=== PATIENT | female | born 1960 | race American Indian/Alaskan Native ===

== ENCOUNTER 2017-07-25 10:48 | Emergency (ER) | payer MEDICARE ==
[~2017-07-25] VITALS: Ht 167.6 cm; Wt 90.9 kg
[~2017-07-25 10:48] MED LIST: CIPR250T27 PO; LISI-167 PO; METF10002 PO
[2017-07-25] MEDS ORDERED: DEXAMETHASONE 4 MG TABLET PO ONE (12:30)
[2017-07-25] MEDS ORDERED: DIPHENHYDRAMINE 25 MG CAPSULE PO ONE (12:30)
[2017-07-25] MEDS ORDERED: DEXAMETHASONE 4 MG TABLET ONE (12:34)
[2017-07-25] MEDS ORDERED: DIPHENHYDRAMINE 25 MG CAPSULE ONE (12:34)
[2017-07-25] MEDS ORDERED: LIDOCAINE 1%, 20ML ONE (13:22)
[2017-07-25] MEDS ORDERED: LIDOCAINE 1%, 20ML INFIL ONE (13:30)
[2017-07-25 13:58] VITALS: BP 176/110
== END 2017-07-25 14:53 | disposition home or self-care (01) ==
LOC: ED 14:47
DX: L02.811 Cutaneous abscess of head [any part, except face] (principal); H05.229 Edema of unspecified orbit; E11.9 Type 2 diabetes mellitus without complications; I10 Essential (primary) hypertension
CPT/HCPCS: 10060; 99283; Q0163

== ENCOUNTER 2019-04-14 06:51 | Emergency (ER) | payer MEDICARE ==
[~2019-04-14] VITALS: Ht 167.6 cm; Wt 80.0 kg
[2019-04-14 13:35] VITALS: BP 129/80
== END 2019-04-14 16:30 ==
LOC: ED 08:51 → UNDOADMIN 11:45 → EDIP 11:45 → 4NOR 13:00 → ED 16:30 → UNDODISIN 16:30
DX: N10 Acute pyelonephritis (principal); R10.84 Generalized abdominal pain; N17.9 Acute kidney failure, unspecified
CPT/HCPCS: 36415; 74021; 74176; 76700; 80053; 81001; 82010; 82803; 83605; 83690; 85025; 87040; 87077; 87086; 87186; 93005; 96374; 96375; 99284; J0696; J2270; J2405; J7030; 96361; G0378

== ENCOUNTER 2019-08-02 06:11 | Inpatient (IN) | payer MEDICARE ==
[~2019-08-02] VITALS: Ht 167.6 cm; Wt 94.6 kg
[~2019-08-02 06:11] MED LIST changes: +BUSP5TAB2 PO; +INSU100V8 SQ
--- NOTE | 2019-08-02 06:17 | NUR ---
PT IN [place] IN [facility] WITH DR. KAMARA AT BS. PT EDUCATED ABOUT ER PROCESS AND POC AND VERBALIZES UNDERSTANDING. CALL LIGHT IS WITHIN REACH AT THIS TIME. AWAITING ORDERS AT THIS TIME.
[2019-08-02] MEDS ORDERED: SODIUM CHLORIDE FLUSH 10ML SYR IVF ONE (06:30)
[2019-08-02] MEDS ORDERED: DIPHENHYDRAMINE 50 MG/ML, 1ML IVPush ONE (06:30)
[2019-08-02] MEDS ORDERED: DIPHENHYDRAMINE 50 MG/ML, 1ML ONE (06:32)
[2019-08-02] MEDS ORDERED: MORPHINE SULFATE 4 MG/ML, 1ML ONE ×2 (06:32→08:48)
[2019-08-02 06:34] LABS: BASOPHILS # (AUTO) 0.03 x10^3/uL (0-0.1); BASOPHILS % (AUTO) 1 % (0-1); EOSINOPHILS # (AUTO) 0.28 x10^3/uL (0-0.4); EOSINOPHILS % (AUTO) 6 % (1-7); LYMPHOCYTES # (AUTO) 1.25 x10^3/uL (1-3.4); LYMPHOCYTES % (AUTO) 27 % (22-44); MD NO; MEAN CORPUSCULAR HEMOGLOBIN 30.5 pg (27.0-34.8); MEAN CORPUSCULAR HGB CONC 32.9 g/dL (32.4-35.8); MEAN PLATELET VOLUME 7.8 fL (7.4-10.4); MONOCYTES # (AUTO) 0.29 x10^3/uL (0.2-0.8); MONOCYTES % (AUTO) 6 % (2-9); NEUTROPHILS # (AUTO) 2.79 x10^3/uL (1.8-6.8); NEUTROPHILS % (AUTO) 60 % (42-75); PLATELET COUNT 272 x10^3/uL (130-400); RED BLOOD COUNT 3.94 x10^6/uL (3.82-5.3); RED CELL DISTRIBUTION WIDTH 14.2 % (9.6-15.2)
[2019-08-02] MEDS: MORPHINE SULFATE 4 MG/ML, 1ML IVPush PRN ×2 (06:34→08:52)
--- NOTE | 2019-08-02 06:35 | NUR ---
pt medicated per mar
--- NOTE | 2019-08-02 06:37 | NUR ---
pt medicated per mar at this time. pt states she is unable to void at this time but verbalized understanding of need for urine sample to be provided
[2019-08-02 06:43] LABS: ALANINE AMINOTRANSFERASE 23 U/L (12-78); ALBUMIN 3.7 g/dL (3.4-5.0); ANION GAP 4 mmol/L (5-15); CALCIUM 9.6 mg/dL (8.5-10.1); CHLORIDE 107 mmol/L (98-107); CREATININE 1.27 mg/dL (0.55-1.02)
[2019-08-02 06:45] LABS: ALKALINE PHOSPHATASE 108 U/L (45-117); BILIRUBIN,TOTAL 0.5 mg/dL (0.2-1.0); TOTAL PROTEIN 8.2 g/dL (6.4-8.2)
--- NOTE | 2019-08-02 06:51 | NUR ---
[facility]
--- NOTE | 2019-08-02 06:56 | NUR ---
REPORT OF PT TO JONES KENNY. ALL QUESTIONS ANSWERED.
--- NOTE | 2019-08-02 07:13 | NUR ---
PT BACK FROM CT, BP REMAINS ELEVATED WILL UPDATE ERMD. PT STATES PAIN NOW 5/10, BETTER POST PAIN ADMINISTRATION
[2019-08-02] MEDS ORDERED: AMLODIPINE 5 MG TABLET ONE (07:27)
[2019-08-02] MEDS ORDERED: AMLODIPINE 5 MG TABLET PO ONE (07:30)
[2019-08-02 07:46] LABS: MICROSCOPIC AUTO
[2019-08-02 07:48] LABS: CULTURE INDICATED? YES
--- NOTE | 2019-08-02 08:27 | NUR ---
BP REMAINS ELEVATED, ERMD AWARE.
[2019-08-02] MEDS ORDERED: ENALAPRILAT 1.25 MG/ML, 2ML IV ONE (08:30)
[2019-08-02] MEDS ORDERED: ENALAPRILAT 1.25 MG/ML, 1ML ONE (08:48)
[2019-08-02] MEDS ORDERED: CEFTRIAXONE PMX 1GM/50ML 50 ML ONE (08:53)
--- NOTE | 2019-08-02 08:58 | NUR ---
ADDITIONAL MEDICATION ORDERED FOR ELEVATED BP, PT MEDICATED PER OCT. PT TO BE ADMITTED, ERMD IN TO UPDATE PT Addendum: 08/02/19 at 0959 by DANYA OK PER ERMD TO ADMIN ABX, NO BC NEEDED PT NOT MEETING SIRS CRITERIA
[2019-08-02] MEDS ORDERED: CEFTRIAXONE PMX 1GM/50ML 50 ML IV ONE (09:00)
[2019-08-02] MEDS ORDERED: AMLO10TA8 PO (09:09)
[2019-08-02] MEDS ORDERED: FERR324T5 PO (09:09)
[2019-08-02] MEDS: BUSPIRONE 5 MG TABLET PO SCH ×3 (10:00→21:00)
[2019-08-02] MEDS ORDERED: TEMPLATE NON-FORMULARY MED. (Ferrous Sulfate** 324 MG) PO SCH (10:00)
[2019-08-02] MEDS ORDERED: INSULIN GLARGINE 100 UNITS/ML, PEN SQ-INSULIN SCH (10:00)
[2019-08-02] MEDS: CEFTRIAXONE PMX 2GM/50ML 50 ML IV SCH (10:00)
[2019-08-02] MEDS ORDERED: AMLODIPINE 10 MG TAB PO SCH (10:00)
--- NOTE | 2019-08-02 10:22 | NUR ---
PT TO BE MED TELE, AWAITING BED PLACEMENT, BP LOWERING, ADMITTING MD IN TO EVAL PT. NAD NOTED
[2019-08-02] MEDS ORDERED: TEMAZEPAM 15 MG CAPSULE PO PRN (10:30)
[2019-08-02] MEDS ORDERED: ONDANSETRON 2MG/ML, 2ML IVPush PRN (10:30)
[2019-08-02] MEDS ORDERED: ACETAMINOPHEN 325 MG TABLET PO PRN (10:30)
[2019-08-02] MEDS ORDERED: INSULIN LISPRO 100 UNITS/ML, PEN SQ-INSULIN SCH (11:00)
--- NOTE | 2019-08-02 11:51 | NUR ---
REPORT CALLED TO RECIEVING RN
[2019-08-02] MEDS ORDERED: FERROUS SULFATE 325 MG TABLET PO SCH (12:36)
[2019-08-02 12:45] VITALS: BP 160/80
[2019-08-02 12:54] VITALS: BP 222/117
[2019-08-02] MEDS: hydrALAzine 20 MG/ML, 1ML IV PRN ×2 (13:00→23:48)
[2019-08-02] MEDS: NICOTINE 21 MG/24 HR PATCH.TD24 TD SCH (13:08)
[2019-08-02] MEDS: morphine SULFATE 10 MG/ML, 1ML IVPush PRN ×3 (14:44→23:57)
[2019-08-02] MEDS: HEPARIN 5,000 UNITS/ML, 1ML SQ SCH (14:48)
[2019-08-02] MEDS: SODIUM CHLORIDE 0.9% 1,000 ML IV SCH (16:39)
[2019-08-02 18:51] VITALS: BP 153/73
[2019-08-02] MEDS ORDERED: BUSPIRONE 10 MG TABLET ONE (21:32)
[2019-08-02] MEDS: INSULIN LISPRO 100 UNITS/ML, PEN SQ-INSULIN SCH (21:35)
[2019-08-02] MEDS: AMLODIPINE 5 MG TABLET PO SCH (21:35)
[2019-08-02 23:46] VITALS: BP 178/94
[2019-08-03 00:30] VITALS: BP 126/69
[2019-08-03 01:01] VITALS: BP 129/75
[2019-08-03] MEDS: SODIUM CHLORIDE 0.9% 1,000 ML IV SCH (04:24)
[2019-08-03] MEDS: HEPARIN 5,000 UNITS/ML, 1ML SQ SCH (04:24)
[2019-08-03] MEDS: morphine SULFATE 10 MG/ML, 1ML IVPush PRN (06:05)
[2019-08-03 06:15] LABS: CALCIUM 9.1 mg/dL (8.5-10.1); CHLORIDE 110 mmol/L (98-107)
[2019-08-03 06:22] LABS: ALANINE AMINOTRANSFERASE 24 U/L (12-78); ALBUMIN 3.2 g/dL (3.4-5.0); ALKALINE PHOSPHATASE 98 U/L (45-117); ANION GAP 9 mmol/L (5-15); BILIRUBIN,TOTAL 0.5 mg/dL (0.2-1.0); CREATININE 1.35 mg/dL (0.55-1.02); TOTAL PROTEIN 7.7 g/dL (6.4-8.2)
[2019-08-03 07:09] LABS: BASOPHILS # (AUTO) 0.03 x10^3/uL (0-0.1); BASOPHILS % (AUTO) 1 % (0-1); EOSINOPHILS # (AUTO) 0.27 x10^3/uL (0-0.4); EOSINOPHILS % (AUTO) 5 % (1-7); LYMPHOCYTES # (AUTO) 1.36 x10^3/uL (1-3.4); LYMPHOCYTES % (AUTO) 25 % (22-44); MD NO; MEAN CORPUSCULAR HEMOGLOBIN 30.4 pg (27.0-34.8); MEAN CORPUSCULAR HGB CONC 33.4 g/dL (32.4-35.8); MEAN CORPUSCULAR VOLUME 90.9 fL (80-100); MEAN PLATELET VOLUME 7.5 fL (7.4-10.4); MONOCYTES # (AUTO) 0.42 x10^3/uL (0.2-0.8); MONOCYTES % (AUTO) 8 % (2-9); NEUTROPHILS % (AUTO) 61 % (42-75); PLATELET COUNT 289 x10^3/uL (130-400); RED BLOOD COUNT 4.32 x10^6/uL (3.82-5.3); RED CELL DISTRIBUTION WIDTH 14.5 % (9.6-15.2)
[2019-08-03 07:50] VITALS: BP 179/88
[2019-08-03] MEDS: INSULIN LISPRO 100 UNITS/ML, PEN SQ-INSULIN SCH (08:37)
[2019-08-03] MEDS ORDERED: METHOCARBAMOL 500 MG TABLET PO SCH (09:30)
[2019-08-03] MEDS ORDERED: HYDROcodone/APAP 5/325 TABLET PO PRN (09:30)
[2019-08-03] MEDS ORDERED: BUSPIRONE 10 MG TABLET ONE (10:33)
[2019-08-03] MEDS: NICOTINE 21 MG/24 HR PATCH.TD24 TD SCH (10:36)
[2019-08-03] MEDS: CEFTRIAXONE PMX 2GM/50ML 50 ML IV SCH (10:37)
[2019-08-03] MEDS: AMLODIPINE 5 MG TABLET PO SCH (10:37)
[2019-08-03] MEDS: BUSPIRONE 5 MG TABLET PO SCH (10:37)
== END 2019-08-03 11:32 | disposition left against medical advice (07) | DRG 683 ==
LOC: ED 07:12 → EDIP 09:32 → 3N 12:30
PROVIDERS: ADMIT Emergency Medicine; ATTEND Internal Medicine
DX: N17.0 Acute kidney failure with tubular necrosis (principal); I50.32 Chronic diastolic (congestive) heart failure; I16.0 Hypertensive urgency; N10 Acute pyelonephritis; E11.40 Type 2 diabetes mellitus with diabetic neuropathy, unspecified; E66.9 Obesity, unspecified; F17.210 Nicotine dependence, cigarettes, uncomplicated; F32.9 Major depressive disorder, single episode, unspecified; I11.0 Hypertensive heart disease with heart failure; I25.10 Atherosclerotic heart disease of native coronary artery without angina pectoris; Z79.4 Long term (current) use of insulin; Z80.3 Family history of malignant neoplasm of breast; Z80.49 Family history of malignant neoplasm of other genital organs; Z90.49 Acquired absence of other specified parts of digestive tract; Z99.3 Dependence on wheelchair
CPT/HCPCS: 36415; 74176; 80053; 81001; 82962; 83690; 83735; 84100; 84443; 85025; 87040; 87077; 87086; 87186; 93005; G0378; J0696; J1644; J0360; J1200; J1815; J2270; J7030

== ENCOUNTER 2020-03-25 18:28 | Observation (INO) | payer MEDICARE ==
[~2020-03-25] VITALS: Ht 167.6 cm; Wt 77.0 kg
[~2020-03-25 18:28] MED LIST changes: +AMLO10TA8 PO; +FERR324T5 PO
[2020-03-25] MEDS ORDERED: SODIUM CHLORIDE FLUSH 10ML SYR IVF ONE (19:00)
[2020-03-25] MEDS ORDERED: morphine SULFATE 10 MG/ML, 1ML IVPush ONE (19:00)
[2020-03-25] MEDS ORDERED: MORPHINE SULFATE 4 MG/ML, 1ML ONE (19:18)
[2020-03-25] MEDS ORDERED: ONDANSETRON 2MG/ML, 2ML ONE (19:18)
[2020-03-25 19:29] LABS: BASOPHILS # (AUTO) 0.02 x10^3/uL (0-0.1); BASOPHILS % (AUTO) 1 % (0-1); EOSINOPHILS # (AUTO) 0.09 x10^3/uL (0-0.4); EOSINOPHILS % (AUTO) 2 % (1-7); LYMPHOCYTES # (AUTO) 1.36 x10^3/uL (1-3.4); LYMPHOCYTES % (AUTO) 28 % (22-44); MD NO; MEAN CORPUSCULAR HEMOGLOBIN 30.7 pg (27.0-34.8); MEAN CORPUSCULAR HGB CONC 33.7 g/dL (32.4-35.8); MEAN CORPUSCULAR VOLUME 91.3 fL (80-100); MEAN PLATELET VOLUME 7.7 fL (7.4-10.4); MONOCYTES % (AUTO) 8 % (2-9); NEUTROPHILS # (AUTO) 3.01 x10^3/uL (1.8-6.8); NEUTROPHILS % (AUTO) 62 % (42-75); PLATELET COUNT 353 x10^3/uL (130-400); RED BLOOD COUNT 4.24 x10^6/uL (3.82-5.3); RED CELL DISTRIBUTION WIDTH 13.3 % (9.6-15.2)
[2020-03-25] MEDS ORDERED: ONDANSETRON 2MG/ML, 2ML IVPush ONE (19:30)
[2020-03-25 19:42] LABS: ALANINE AMINOTRANSFERASE 22 U/L (12-78); ANION GAP 10 mmol/L (5-15); CALCIUM 9.6 mg/dL (8.5-10.1); CHLORIDE 102 mmol/L (98-107); CREATININE 1.75 mg/dL (0.55-1.02)
[2020-03-25 19:47] LABS: ALKALINE PHOSPHATASE 77 U/L (45-117); BILIRUBIN,TOTAL 1.2 mg/dL (0.2-1.0); TOTAL PROTEIN 7.9 g/dL (6.4-8.2); TROPONIN I < 0.015 ng/mL (0.000-0.045)
[2020-03-25] MEDS ORDERED: SODIUM CHLORIDE 0.9%, 500ML IVBOLUS ONE (20:30)
--- NOTE | 2020-03-25 21:03 | NUR ---
Assumed care at this time. marlen RN female RN completing striaght cath for this Male RN.
[2020-03-25 21:36] LABS: MICROSCOPIC AUTO
[2020-03-25] MEDS ORDERED: CEFTRIAXONE PMX 1GM/50ML 50 ML IV ONE (22:00)
[2020-03-25] MEDS ORDERED: CEFTRIAXONE PMX 1GM/50ML 50 ML ONE (22:36)
--- NOTE | 2020-03-25 22:50 | NUR ---
Pt medicated per emar. Pt ambulated to restroom with 1 person contact
--- NOTE | 2020-03-25 23:48 | NUR ---
Report to Luzmaria GOLDMAN
--- NOTE | 2020-03-25 23:49 | NUR ---
Report received from JONES Wallace. This RN to assume care.
[2020-03-26] MEDS ORDERED: POLYETHYLENE GLYCOL 17 GM PACKET PO PRN (00:30)
[2020-03-26] MEDS ORDERED: INSULIN GLARGINE 100 UNITS/ML, PEN SQ-INSULIN SCH (00:30)
[2020-03-26] MEDS ORDERED: ONDANSETRON 2MG/ML, 2ML IVPush PRN (00:30)
[2020-03-26] MEDS ORDERED: hydrALAzine 20 MG/ML, 1ML IVPush PRN (00:30)
[2020-03-26] MEDS ORDERED: POTASSIUM CHLORIDE 40 MEQ in SODIUM CHLORIDE 0.9% 500 ML IV ONE (00:30)
[2020-03-26] MEDS ORDERED: TRAZODONE 50MG TABLET PO PRN (00:30)
[2020-03-26] MEDS ORDERED: ACETAMINOPHEN 325 MG TABLET PO PRN (00:30)
--- NOTE | 2020-03-26 01:49 | NUR ---
Patient presented to ER c/o SOB, abd pain, nausea, and fatigue x1 month. Patient currently c/o all symptoms in addition to chest pressure. Patient is also experiencing weakness.
[2020-03-26 02:58] VITALS: BP 176/92
[2020-03-26] MEDS ORDERED: LISI-170 PO (03:05)
[2020-03-26] MEDS: INSULIN GLARGINE 100 UNITS/ML, PEN SQ-INSULIN SCH ×2 (03:08→20:58)
[2020-03-26 03:20] LABS: AMPHETAMINE SCREEN, URINE Positive (Negative); BARBITURATE SCREEN, URINE Negative (Negative); BENZODIAZEPINE SCREEN, URINE Negative (Negative); CANNABINOID SCREEN, URINE Negative (Negative); COCAINE SCREEN, URINE Negative (Negative); METHADONE SCREEN, URINE Negative (Negative); OPIATE SCREEN, URINE Positive (Negative)
[2020-03-26] MEDS: morphine SULFATE 10 MG/ML, 1ML IVPush PRN ×3 (03:24→12:20)
[2020-03-26] MEDS: HEPARIN 5,000 UNITS/ML, 1ML SQ SCH ×4 (03:24→23:40)
[2020-03-26 05:20] LABS: ANION GAP 10 mmol/L (5-15); CALCIUM 9.1 mg/dL (8.5-10.1); CHLORIDE 106 mmol/L (98-107)
[2020-03-26 05:21] LABS: CREATININE 1.53 mg/dL (0.55-1.02)
[2020-03-26 07:12] VITALS: BP 112/67
[2020-03-26] MEDS: INSULIN LISPRO 100 UNITS/ML, PEN SQ-INSULIN SCH ×4 (08:29→20:59)
[2020-03-26] MEDS: BUSPIRONE 5 MG TABLET PO SCH ×3 (08:34→20:58)
[2020-03-26] MEDS ORDERED: AMLODIPINE 5 MG TABLET PO SCH (09:00)
[2020-03-26] MEDS ORDERED: FERROUS SULFATE 325 MG TABLET PO SCH (09:00)
[2020-03-26] MEDS ORDERED: POTASSIUM CHLORIDE 20 MEQ TAB.ER.PRT PO ONE (15:00)
[2020-03-26 16:10] VITALS: BP 145/78
[2020-03-26] MEDS: HYDROcodone/APAP 5/325 TABLET PO PRN ×2 (16:52→23:40)
[2020-03-26 19:38] VITALS: BP 157/91
[2020-03-26] MEDS ORDERED: CEFTRIAXONE PMX 1GM/50ML 50 ML IV SCH (23:00)
[2020-03-27 01:13] VITALS: BP 133/76
== END 2020-03-27 05:20 | disposition left against medical advice (07) ==
LOC: ED 21:08 → INTOOBSV 22:13 → EDIP 22:13 → 4WST 03-26 03:08
PROVIDERS: ADMIT Family Medicine; ATTEND Family Medicine
DX: N17.0 Acute kidney failure with tubular necrosis (principal); I50.23 Acute on chronic systolic (congestive) heart failure; N39.0 Urinary tract infection, site not specified; I10 Essential (primary) hypertension; E86.0 Dehydration; E11.9 Type 2 diabetes mellitus without complications; E78.5 Hyperlipidemia, unspecified; F17.210 Nicotine dependence, cigarettes, uncomplicated; F32.9 Major depressive disorder, single episode, unspecified; R07.81 Pleurodynia; E87.6 Hypokalemia; F15.90 Other stimulant use, unspecified, uncomplicated; M54.5 Low back pain; K59.00 Constipation, unspecified; I25.2 Old myocardial infarction; Z79.4 Long term (current) use of insulin; Z90.49 Acquired absence of other specified parts of digestive tract
CPT/HCPCS: 36415; 71045; 71101; 80048; 80053; 80307; 81001; 82550; 82962; 83036; 83605; 83690; 83735; 83880; 84484; 85025; 85379; 87077; 87086; 87186; 93005; 93306; 96361; 96365; 96366; 96367; 96372; 96375; 96376; 99285; G0378; J0360; J0696; J1644; J1815; J2270; J2405; J3480; J7040; 96374

== ENCOUNTER 2021-03-14 16:34 | Inpatient (IN) | payer MEDICARE ==
[~2021-03-14] VITALS: Ht 167.6 cm; Wt 86.9 kg
[~2021-03-14 16:34] MED LIST changes: +AMLO-211 PO; -AMLO10TA8 PO; +DIPH25CA61 PO; +DOCUSATE PO; +LEVE100020 PO; +LEVO750T6 PO; +LISI-170 PO; +OXYC5TAB98 PO; +QUET100T PO; +SENN-211 PO; +TAMS-11 PO; +TRAZ-175 PO; +[UNRECOGNIZED DRUG - OTHER] PO
--- NOTE | 2021-03-14 16:49 | NUR ---
PT TO ROOM 17 W/ C/O NEPHROSTOMY TUBE BAG LEAKING. PT STATES SHE WAS HERE WHEN IT WAS PLACED BECAUSE SHE WAS CRITICALLY SEPTIC. PT WAS DC'D FROM ED AND PT STATES "THERE WERE SO MANY PAGES OF DIACHARGE INSTRUCTIONS AND I DIDN'T READ IT THEN I FOUND OUT I NEEDED TO FOLLOW UP WITH A SURVEY WORKER". PT STATES SHE WAS SUPPOSED TO HAVE THE TUBE REMOVED 6 WEEKS AGO AND DID NOT REALIZE THAT UNTIL LAST WEEK. PT STATES SINCE THEN SHE HAS ATTEMPTED TO CALL TO MAKE APPT W/ SURVEY WORKER W/O SUCCESS. PT ALSO STATES SHE HAS NOT CHANGED DRESSING FOR NEPHROSTOMY TUBE SINCE SHE WAS DISCHARGED. PT RESTING ON GURNEY. NADN. MONITORS APPLIED. VSS. WARM BLANKET PROVIDED. CALL LIGHT IN REACH.
[2021-03-14 17:54] LABS: BASOPHILS % (AUTO) 1 % (0-1); EOSINOPHILS % (AUTO) 4 % (1-7); LYMPHOCYTES % (AUTO) 29 % (22-44); MEAN CORPUSCULAR HEMOGLOBIN 30.8 pg (27.0-34.8); MEAN CORPUSCULAR HGB CONC 34.1 g/dL (32.4-35.8); MEAN PLATELET VOLUME 7.4 fL (7.4-10.4); MONOCYTES % (AUTO) 6 % (2-9); NEUTROPHILS % (AUTO) 60 % (42-75); PLATELET COUNT 412 x10^3/uL (130-400); RED BLOOD COUNT 3.33 x10^6/uL (3.82-5.3); RED CELL DISTRIBUTION WIDTH 14.6 % (9.6-15.2)
--- NOTE | 2021-03-14 17:54 | NUR ---
PT RESTING ON GURNEY. NADN. [place].
[2021-03-14 18:06] LABS: CALCIUM 8.9 mg/dL (8.5-10.1)
[2021-03-14 18:09] LABS: CREATININE 1.79 mg/dL (0.55-1.02)
[2021-03-14 18:17] LABS: ANION GAP 5 mmol/L (5-15); CHLORIDE 110 mmol/L (98-107)
--- NOTE | 2021-03-14 18:23 | NUR ---
PT CHART REVIEWED AND PLACED FOR RECHECK.
--- NOTE | 2021-03-14 18:39 | NUR ---
PT RESTING ON GURNEY. NADN. [place].
[2021-03-14 19:09] LABS: MICROSCOPIC INDICATED
--- NOTE | 2021-03-14 19:34 | NUR ---
PT BEING TAKEN TO RADIOLOGY FOR NEPHROSTOGRAM IN STABLE CONDITION. MARTYN. VSS.
--- NOTE | 2021-03-14 20:31 | NUR ---
WOUND CARE PERFORMED TO NEPHROSTOMY OPENING. PT MARGARETH WELL.
--- NOTE | 2021-03-14 20:39 | NUR ---
PT RESTING ON GURNEY. NADN. [place].
[2021-03-14] MEDS ORDERED: LORazepam 1MG TABLET ONE (20:55)
[2021-03-14] MEDS: CEFTRIAXONE 1,000 MG in DEXTROSE 5% 50 ML IVPB ONE ×2 (20:58→22:27)
--- NOTE | 2021-03-14 20:58 | NUR ---
PER ERP DR. HARRIS NO NEED FRO BC X 2 PRIOR TO START OF IV ABX.
[2021-03-14] MEDS ORDERED: LORazepam 1MG TABLET PO ONE (21:00)
--- NOTE | 2021-03-14 21:18 | NUR ---
REPORT GIVEN TO EMILI MONTANA RN.
[2021-03-14] MEDS ORDERED: SODIUM CHLORIDE 0.9% 1,000 ML IV SCH (22:00)
[2021-03-14] MEDS ORDERED: ONDANSETRON 2MG/ML, 2ML IVPush PRN (22:00)
[2021-03-14] MEDS ORDERED: POLYETHYLENE GLYCOL 17 GM PACKET PO PRN (22:00)
[2021-03-14] MEDS ORDERED: HYDROcodone/APAP 5/325 TABLET PO PRN (22:00)
[2021-03-14] MEDS ORDERED: TRAZODONE 50MG TABLET PO PRN (22:00)
[2021-03-14] MEDS ORDERED: ONDANSETRON ODT 4 MG PO PRN (22:00)
[2021-03-14] MEDS ORDERED: BISACODYL 10 MG SUPP PR PRN (22:00)
[2021-03-14] MEDS ORDERED: LABETALOL 5MG/ML, 20ML IVPush PRN (22:00)
[2021-03-14] MEDS ORDERED: morphine SULFATE 10 MG/ML, 1ML IVPush PRN (22:00)
[2021-03-14] MEDS ORDERED: ACETAMINOPHEN 325 MG TABLET PO PRN (22:00)
[2021-03-14] MEDS: CEFTRIAXONE 1,000 MG in DEXTROSE 5% 50 ML IVPB SCH (22:00)
[2021-03-14] MEDS ORDERED: hydrALAzine 20 MG/ML, 1ML IVPush PRN (22:00)
[2021-03-14] MEDS ORDERED: TRAZODONE 150MG TABLET PO PRN (22:30)
[2021-03-14] MEDS ORDERED: DEXTROSE 50%, 50ML SYRINGE IVPush PRN (22:30)
[2021-03-14] MEDS ORDERED: DEXTROSE 4 GM TAB.CHEW PO PRN (22:30)
[2021-03-14] MEDS ORDERED: GLUCAGON 1 MG IM PRN (22:30)
--- NOTE | 2021-03-14 22:35 | NUR ---
report given to alpa harrington
[2021-03-14] MEDS ORDERED: ACETAMINOPHEN 325 MG TABLET ONE (22:36)
[2021-03-14] MEDS ORDERED: hydrALAzine 20 MG/ML, 1ML ONE (22:45)
--- NOTE | 2021-03-14 23:08 | NUR ---
PT'S BLOOD PRESSUE WAS HIGH, PT STATED HAVING A HEADACHE. MEDICATED PER EMAR. BP MORE STABLE NOW. PT READY FOR TRANSPORT AT THIS TIME
[2021-03-15 00:17] VITALS: BP 135/79
[2021-03-15 06:22] LABS: BASOPHILS % (AUTO) 1 % (0-1); EOSINOPHILS % (AUTO) 4 % (1-7); LYMPHOCYTES % (AUTO) 20 % (22-44); MEAN CORPUSCULAR HEMOGLOBIN 30.7 pg (27.0-34.8); MEAN CORPUSCULAR HGB CONC 33.6 g/dL (32.4-35.8); MEAN PLATELET VOLUME 7.2 fL (7.4-10.4); MONOCYTES % (AUTO) 6 % (2-9); NEUTROPHILS % (AUTO) 69 % (42-75); PLATELET COUNT 396 x10^3/uL (130-400); RED BLOOD COUNT 3.18 x10^6/uL (3.82-5.3); RED CELL DISTRIBUTION WIDTH 14.8 % (9.6-15.2)
[2021-03-15 06:33] LABS: ANION GAP 4 mmol/L (5-15); CALCIUM 8.8 mg/dL (8.5-10.1); CHLORIDE 111 mmol/L (98-107); CREATININE 1.71 mg/dL (0.55-1.02)
[2021-03-15] MEDS: INSULIN LISPRO 100 UNITS/ML, PEN SQ-INSULIN SCH ×4 (07:00→20:30)
[2021-03-15 07:20] VITALS: BP 128/71
[2021-03-15] MEDS ORDERED: ACETAMINOPHEN 325 MG TABLET PO PRN ×2 (08:00→09:00)
[2021-03-15] MEDS ORDERED: HYDROcodone/APAP 5/325 TABLET PO PRN (08:00)
[2021-03-15] MEDS ORDERED: HEPARIN 5,000 UNITS/ML, 1ML SQ SCH (08:00)
[2021-03-15] MEDS ORDERED: MIDAZOLAM 1 MG/ML, 2ML ONE (08:41)
[2021-03-15] MEDS ORDERED: FENTANYL PF 100 MCG/2ML ONE (08:41)
[2021-03-15] MEDS ORDERED: OXYcodone 5 MG/5 ML ORAL.SOL UDC PO PRN (09:00)
[2021-03-15] MEDS ORDERED: LABETALOL 5MG/ML, 20ML IV PRN (09:00)
[2021-03-15] MEDS ORDERED: FENTANYL PF 100 MCG/2ML IV PRN (09:00)
[2021-03-15] MEDS ORDERED: PROMETHAZINE 25 MG/ML, 1ML IVPush PRN (09:00)
[2021-03-15] MEDS ORDERED: EPHEDRINE 50 MG/ML, 1ML IVPush PRN (09:00)
[2021-03-15] MEDS ORDERED: HYDROmorphone 1 MG/ML, 1ML INJ IVPush PRN (09:00)
[2021-03-15] MEDS ORDERED: hydrALAzine 20 MG/ML, 1ML IV PRN (09:00)
[2021-03-15] MEDS ORDERED: ONDANSETRON 2MG/ML, 2ML IVPush PRN (09:00)
[2021-03-15] MEDS ORDERED: OMNIPAQUE 350 MG/ML, 50 ML BOTTLE ONE (09:11)
[2021-03-15] MEDS ORDERED: LIDOCAINE-MPF 2% ,5ML ONE (09:43)
[2021-03-15] MEDS ORDERED: PROPOFOL 10 MG/ML, 20ML ONE (09:55)
[2021-03-15] MEDS ORDERED: ONDANSETRON 2MG/ML, 2ML ONE (09:55)
[2021-03-15] MEDS ORDERED: DEXAMETHASONE 4 MG/ML, 1ML ONE (09:55)
[2021-03-15] MEDS ORDERED: EPHEDRINE 50 MG/ML, 1ML ONE (10:05)
[2021-03-15] MEDS ORDERED: OXYcodone 5 MG/5 ML ORAL.SOL UDC ONE (11:10)
[2021-03-15 12:35] VITALS: BP 119/68
[2021-03-15] MEDS: SENNA/DOCUSATE TABLET PO SCH (12:57)
[2021-03-15] MEDS: LEVETIRACETAM 500 MG TABLET PO SCH ×2 (12:57→20:32)
[2021-03-15] MEDS: SODIUM CHLORIDE FLUSH 10ML SYR IVF SCH ×2 (12:58→20:32)
[2021-03-15 18:34] VITALS: BP 147/74
[2021-03-15] MEDS ORDERED: SODIUM CHLORIDE 0.9% 1,000 ML IV SCH (22:00)
[2021-03-15] MEDS: CEFTRIAXONE 1,000 MG in DEXTROSE 5% 50 ML IVPB SCH (22:14)
[2021-03-16 00:06] VITALS: BP 122/80
[2021-03-16 03:56] VITALS: BP 148/83
[2021-03-16 05:30] LABS: % IRON SATURATION 26 % (20-55); IRON LEVEL 83 mcg/dL (50-170); TOTAL IRON BINDING CAPACITY 319 mcg/dL (250-450)
[2021-03-16] MEDS ORDERED: DIPHENHYDRAMINE 25 MG CAPSULE ONE (05:53)
[2021-03-16] MEDS ORDERED: HEPARIN 5,000 UNITS/ML, 1ML SQ SCH (06:00)
[2021-03-16] MEDS ORDERED: DIPHENHYDRAMINE 25 MG CAPSULE PO ONE (06:00)
[2021-03-16 06:30] VITALS: BP 150/80
[2021-03-16] MEDS: INSULIN LISPRO 100 UNITS/ML, PEN SQ-INSULIN SCH (07:32)
[2021-03-16] MEDS ORDERED: FLUCONAZOLE 200 MG/100 ML 100 ML IV ONE (08:00)
[2021-03-16] MEDS: SODIUM CHLORIDE FLUSH 10ML SYR IVF SCH (09:23)
[2021-03-16] MEDS: LEVETIRACETAM 500 MG TABLET PO SCH (09:23)
[2021-03-16] MEDS: SENNA/DOCUSATE TABLET PO SCH (09:23)
[2021-03-16] MEDS ORDERED: INSU100I11 SQ-INSULIN ×2 (10:40→12:59)
[2021-03-16] MEDS ORDERED: FLUC100T PO ×2 (10:40→12:59)
[2021-03-16] MEDS ORDERED: CARV3.1212 PO ×2 (10:40→12:59)
[2021-03-16] MEDS ORDERED: INSULIN LISPRO 100 UNITS/ML, PEN SQ-INSULIN SCH (11:00)
[2021-03-16] MEDS ORDERED: INSU100V8 SQ (12:59)
[2021-03-16] MEDS ORDERED: LEVO750T6 PO (12:59)
[2021-03-16] MEDS ORDERED: SENN-211 PO (12:59)
[2021-03-16] MEDS ORDERED: ACET325T26 PO (12:59)
[2021-03-16] MEDS ORDERED: QUET100T PO (12:59)
[2021-03-16] MEDS ORDERED: LEVE500T53 PO (12:59)
[2021-03-16] MEDS ORDERED: TAMS-11 PO (12:59)
[2021-03-16] MEDS ORDERED: LISI-167 PO (12:59)
[2021-03-16] MEDS ORDERED: CARVEDILOL 3.125 MG TABLET PO SCH (18:00)
[2021-03-16] MEDS ORDERED: SODIUM CHLORIDE 0.9% 1,000 ML IV SCH (22:00)
[2021-03-17] MEDS ORDERED: FLUCONAZOLE 100 MG TABLET PO SCH (09:00)
== END 2021-03-16 13:10 | disposition home health service (06) | DRG 660 ==
LOC: ED 17:00 → 3N 22:40 → 4NE 23:47 → DCLOUNGE 03-16 13:00
PROVIDERS: ADMIT Family Medicine; ATTEND Internal Medicine
PROC: 0T768DZ Dilation of Right Ureter with Intraluminal Device, Via Natural or Artificial Opening Endoscopic (ICD-10-PCS; 2021-03-15)
PROC: 0TF38ZZ Fragmentation in Right Kidney Pelvis, Via Natural or Artificial Opening Endoscopic (ICD-10-PCS; 2021-03-15)
PROC: 0TF68ZZ Fragmentation in Right Ureter, Via Natural or Artificial Opening Endoscopic (ICD-10-PCS; 2021-03-15)
PROC: 0TP980Z Removal of Drainage Device from Ureter, Via Natural or Artificial Opening Endoscopic (ICD-10-PCS; 2021-03-15)
PROC: 0TP5X0Z Removal of Drainage Device from Kidney, External Approach (ICD-10-PCS; 2021-03-15)
PROC: 0TJB8ZZ Inspection of Bladder, Via Natural or Artificial Opening Endoscopic (ICD-10-PCS; principal; 2021-03-15 09:15)
DX: N13.5 Crossing vessel and stricture of ureter without hydronephrosis (principal); N39.0 Urinary tract infection, site not specified; E87.1 Hypo-osmolality and hyponatremia; N18.30 Chronic kidney disease, stage 3 unspecified; E11.22 Type 2 diabetes mellitus with diabetic chronic kidney disease; I12.9 Hypertensive chronic kidney disease with stage 1 through stage 4 chronic kidney disease, or unspecified chronic kidney disease; D64.9 Anemia, unspecified; Z20.822 Contact with and (suspected) exposure to COVID-19; Z91.018 Allergy to other foods; Z79.899 Other long term (current) drug therapy; Z91.19 Patient's noncompliance with other medical treatment and regimen; Z91.030 Bee allergy status; Z79.4 Long term (current) use of insulin; Z90.49 Acquired absence of other specified parts of digestive tract; Z93.6 Other artificial openings of urinary tract status; Z93.0 Tracheostomy status; Z80.3 Family history of malignant neoplasm of breast; Z80.49 Family history of malignant neoplasm of other genital organs
CPT/HCPCS: 36415; 74018; 76000; 80048; 81001; 82962; 83036; 83540; 83550; 85025; 87077; 87086; 87106; 87186; 87635; 88305; 93005; G0378; J0696; J1100; J1644; J2250; J2405; J2704; J3010; Q9967; C1769; C2617; J0360; J1450; J1815; J7030; Q0163